=== PATIENT | male | born 1960 | race Hispanic/Latino ===

== ENCOUNTER 2016-08-12 23:07 | Emergency (ER) | payer OTHER ==
[~2016-08-12] VITALS: Ht 162.6 cm; Wt 81.8 kg
[~2016-08-12 23:07] MED LIST: KTC2C15 TP; LISI-567 PO; METF850T2 PO; SULF1TAB7 PO
[2016-08-12 23:14] VITALS: BP 159/101; PULSE 100; RESP 20; O2SAT 98
--- NOTE | 2016-08-12 23:29 | ED.REPORT ---
HPI- Male Date of Service August 12, 2016 ED Provider: Harry Almanzar MD A 55 year old male with a history of diabetes, hypertension and balanitis presents to the ED complaining of possible balanitis. The pt's foreskin is behind the head of his penis and cannot be reduced, leading to pain and swelling. Per pt's , there has also been bleeding from the penis. The pt has not eaten anything since 14:00 today and has undergone other surgeries without complication. Nursing Notes Stated Complaint: SWOLLEN TESTICLES Chief Complaint: Male Abdominal Pain Nursing Notes Reviewed: Yes Allergies: Coded Allergies: No Known Allergies (Verified Allergy, Unknown, 08/12/16) Scheduled Clotrimazole 2% (Gyne-Lotrimin 3 2%) 21 Gm Cream.appl 21 GM VAGINAL BID Ketoconazole (Ketoconazole) 15 Gm Cream..g. 15 GM TP BID AAA BID for at least 2 weeks and 1 week after symptoms resolve Lisinopril (Lisinopril) 20 Mg Tablet 20 MG PO DAILY Metformin (Metformin) 850 Mg Tablet 850 MG PO BID Sulfamethoxazole/Trimeth 800-160 mg (Bactrim DS) 1 Each Tablet 1 TABLET PO BID General Time Seen by MD: 23:28 Chief Complaint Other (Possible balanitis) Hx Obtained From: Patient Arrived By: Walk-in Recent Healthcare: No recent hospitalization, Recent doctor visit Similar Sx Previous: Yes Past Medical History Past Medical History Hep C Brain tumor with surgery Balanitis Reports: Diabetes mellitus, Hypertension Past Surgical History surgery for brain tumor pelvis reconstruction Smoking History Current Some Day Smoker, Light Tobacco Smoker Social History Alcohol Use: Denies alcohol use Drug Use: Denies drug use Other Social History: Good social support, Ambulatory Status Independent Review of Systems Review of Systems Note: painful and swollen penis unable to retract foreskin Musculoskeletal: Denies: Back pain, Neck pain Complete sys rev & neg: except as marked. Respiratory: Denies: Non-productive cough, Shortness of breath Physical Exam Initial Vital Signs Vital Signs (First) Date Time Temp Pulse Resp B/P Pulse Ox O2 Delivery O2 Flow Rate FiO2 08/12/16 23:14 36.8 100 20 159/101 98 Room Air Initial VS: Reviewed Male Genitourinary: No mass paraphimosis with long restricted segment behind glands glands perfused but red and swollen significant edema of foreskin patchy balanitis on head of penis General/Constitutional: Awake, Alert Abdomen: Atraumatic, Soft, Non-tender Skin: Color NL, Warm, Dry Head / Eyes: Atraumatic, Normocephalic, PERRL, EOMI ENT: Atraumatic, Airway patent, Mucous membranes moist Neck: Atraumatic, Supple, Full range of motion Respiratory / Chest: Atraumatic, No respiratory distress Cardiovascular: Heart rate NL Back: Atraumatic, Full range of motion Upper Extremity / MS: Atraumatic, Full range of motion Lower Extremity / Pelvis / MS: Atraumatic, Full range of motion Neurologic: Oriented X3, Speech NL, No motor deficits, No sensory deficits Psychiatric: Affect NL, Mood NL Re-Eval/Medical Decision Med Decision/Clinical Course 55-year-old with paraphimosis and a fairly long band of restriction behind the glans. This cannot be reduced readily and urology was consulted. Dr. Gloria managed to reduction after application of ice and squeezing with some Dilaudid support. Patient is discharged now for follow-up with Dr. Sterling, as he will require circumcision. Source of Hx: Old records Re-Evaluation/Progress : Time of Eval: 01:04 Re-Evaluation/Progress Note: Pt rechecked, who is resting comfortably. The diagnosis and plan for discharge are discussed. The pt understands and agrees with the plan. All questions are addressed at this time. Consultation #1: Referral / Consult Name: Lamont Gloria MD Call Returned at: 00:04 Embroiderer: Will see patient Note: Spoke with Dr. Gloria, urology, regarding pt's case. Dr. Gloria will see the pt in the ED. Consultation #2: Referral / Consult Name: Lamont Gloria MD Call Returned at: 01:01 Embroiderer: Agrees with eval, Agrees with plan Note: Spoke with Dr. Gloria, who agrees with the evaluation and recommends discharge. Counseled Regarding: Diagnosis, Need for follow-up, When/why to return to ED Discharge & Departure Impression: Primary Impression: Paraphimosis Additional Impression: Candidal balanitis Disposition: Home Discharge Condition All VS Reviewed: Yes Condition: Stable Patient Instructions: Acute Paraphimosis (ED) Additional Instructions: Keep your foreskin forward and do not attempt to retract. Call Dr. Gloria's office for follow-up. You will need circumcision. Apply clotrimazole cream under the foreskin twice daily. Retract as little as possible in order to apply the cream. Return for any immediate issues Referrals: Lamont Gloria MD [facility] Scribe Attestation Portions of this note were transcribed by Nacny Arshad. I, Dr. Almanzar personally performed the history, physical exam and medical decision-making; I reviewed and confirmed the accuracy of the information in the transcribed note. Signed by: Michelle Cifuentes, 08/13/16 and 0158. copies to: Lamont Gloria MD; [facility] Harry Almanzar MD August 12, 2016 23:29 NANCY ARSHAD August 13, 2016 00:14
[2016-08-13] MEDS ORDERED: HYDROmorphone 1 mg/mL Inj ONE (00:33)
[2016-08-13] MEDS ORDERED: CLOT21CR7 VAGINAL (01:23)
--- NOTE | 2016-08-13 01:59 | ER ---
[address] [address] EMERGENCY DEPARTMENT REPORT PATIENT: SHAWNEE SUGGS : 1960 MR#: [id number] ADMIT: 08/12/2016 JOB ID: [id number] DATE OF SERVICE: 08/13/2016 EMERGENCY DEPARTMENT CONSULTATION: CHIEF COMPLAINT: Penile pain, swelling, and inability to reduce foreskin. HISTORY OF PRESENT ILLNESS: I was asked by emergency department, Dr. Harry Almanzar, to evaluate this 55-year-old male with penile pain and swelling and inability to reduce foreskin. The patient states that starting approximately three hours ago he became unable to reduce the foreskin and subsequently developed penile pain and swelling. Patient reports no dysuria, no fever, no nausea, no vomiting. The patient states that similar episodes have happened in the past with patient subsequently able to reduce the foreskin on his own or with his 's assistance. The patient states he has history of several episodes of balanoposthitis in the past. The patient reports no history of surgery. Attempts at reduction of paraphimosis at the bedside were unsuccessful by emergency department staff. PAST MEDICAL AND SURGICAL HISTORY: Hepatitis C, history of brain tumor, balanitis, diabetes mellitus, hypertension, surgery for brain tumor, pelvic reconstruction. MEDICATIONS: 1. Lisinopril. 2. Metformin. ALLERGIES: No known drug allergies. SOCIAL HISTORY: Light tobacco smoker. No alcohol use. No drug use. The patient is . FAMILY HISTORY: Noncontributory. REVIEW OF SYSTEMS: Constitutional: No fever, no chills. GI: No nausea, no vomiting. Respiratory: No cough, no shortness of breath. PHYSICAL EXAMINATION: Vital signs: Afebrile, temperature 36.8 degrees Celsius. Heart rate 100, respiratory rate 20, BP 159/101, O2 sat 98% on room air. General: Well-developed, well-nourished male in mild distress secondary to pain. HEENT exam: Head normocephalic, atraumatic. Eyes: Extraocular muscle intact. Neck: Supple. Chest: No use of accessory muscles. Nonlabored respirations. No retractions. Abdomen: Soft, nondistended, nontender. No palpable masses. No rebound. No guarding. Skin: Warm and dry. Neurologic exam: Sensation grossly intact to touch. Normal speech. Psych exam: Alert and oriented x3. Normal mood and affect. exam: Scrotum normal. Testes bilaterally descended. No masses. Penis uncircumcised. Foreskin seen in retracted position with moderate amount of penile foreskin edema, with mild foreskin and glanular erythema. No discharge. Foreskin initially unable to be reduced. BEDSIDE PROCEDURE NOTE: The patient was given Dilaudid 2 mg IM x1. A glove filled with ice was placed around the penis for five minutes and then ice was removed. The penile foreskin edema was compressed manually by squeezing the foreskin. Again, Dilaudid 2 mg IM was given and ice was applied to the penis. With moderate difficulty, the foreskin was able to be reduced completely. Thus, the patient had significant paraphimosis and this paraphimosis was able to be reduced at the bedside. ASSESSMENT: Significant paraphimosis, status post bedside reduction of paraphimosis this evening, also with balanoposthitis. PLAN: Patient was instructed in good penile hygiene practices. Patient was instructed to retract his foreskin for only very short periods of time when cleaning his penis or when urinating, and patient was instructed to keep his foreskin reduced and covering the head of his penis at all other times. Patient instructed to follow good penile hygiene practices. Recommend starting antifungal cream for patient's balanoposthitis. Recommend that patient return to see me in the office within the next 1-2 weeks for followup and to discuss option of elective circumcision. Case was discussed with emergency department, Dr. Harry Almanzar.
== END 2016-08-13 01:40 | disposition home or self-care (01) ==
LOC: SED 23:07
DX: N47.2 Paraphimosis (principal); B37.42 Candidal balanitis; E11.9 Type 2 diabetes mellitus without complications; I10 Essential (primary) hypertension; F17.200 Nicotine dependence, unspecified, uncomplicated; Z79.84 Long term (current) use of oral hypoglycemic drugs
CPT/HCPCS: 96372; 99283; J1170